=== PATIENT | male | born 1930 | race Caucasian/White ===

== ENCOUNTER 2017-07-19 14:00 | Observation (INO) | payer MEDICARE, OTHER ==
[~2017-07-19] VITALS: Ht 183 cm; Wt 85.9 kg
[2017-07-19] VITALS (9 sets, daily range): BP systolic 120–137; BP diastolic 62–77; PULSE 69–84; TEMP 97.8–98.2
[~2017-07-19 14:00] MED LIST: ACULAR OPHTHALMI5 ML OP; ALAVERT10 M1 PO; ASPIRIN 81M81 MG/TA2 PO; CENTRUM SILVER1 CTB PO; COLESTID5 GM/PACKE PO; EPA FISH OIL1000 MG PO; NASAREL0.025 MG/1 NS; NATURE'S BLEND500 M1 PO; OCUFLOX 10 ML10 ML OP; PRED FORTE 1 ML1 ML OP; TEARS NATURALE15 M1 OP
[2017-07-19] MEDS ORDERED: NORCO 325 MG-51 TAB PO (14:41)
== END 2017-07-19 19:50 | disposition home or self-care (01) ==
LOC: SDCO 14:00 → SURG 14:02 → SDCO 16:00 → SURG 16:33
DX: N20.1 Calculus of ureter (principal); Z87.442 Personal history of urinary calculi; Z88.8 Allergy status to other drugs, medicaments and biological substances; G47.33 Obstructive sleep apnea (adult) (pediatric); Z79.82 Long term (current) use of aspirin; Z85.46 Personal history of malignant neoplasm of prostate; Z92.3 Personal history of irradiation; I44.7 Left bundle-branch block, unspecified
CPT/HCPCS: C1769; C2617; J0690; J1100; J2405; J2704; J3010